=== PATIENT | female | born 1995 | race Hispanic/Latino ===

== ENCOUNTER 2022-01-20 08:18 | Emergency (ER) | payer OTHER ==
[~2022-01-20] VITALS: Ht 160 cm; Wt 83.9 kg
[2022-01-20] MEDS ORDERED: IBUPROFEN 400 MG TAB PO ONE (08:30)
[2022-01-20] MEDS ORDERED: ACETAMINOPHEN 325 MG TAB PO ONE (08:30)
== END 2022-01-20 08:40 | disposition home or self-care (01) ==
LOC: ER 08:23
DX: R50.9 Fever, unspecified (principal); U07.1 COVID-19; R05.9 Cough, unspecified
CPT/HCPCS: 99283